=== PATIENT | female | born 1950 | race Caucasian/White ===

== ENCOUNTER → 2017-12-08 | Outpatient (CLI) | payer OTHER ==
[~2017-12-08] MED LIST: ALBIPROI; DULO30
[2017-12-09 08:38] LABS: Candida species (DNA Probe) Negative (NEGATIVE); G. vaginalis (DNA Probe) Negative (NEGATIVE); T. vaginalis (DNA Probe) Negative (NEGATIVE)
== END ==
LOC: LAB SHORT 18:24 → LAB EV 18:24
PROVIDERS: Nurse Practitioner Family
DX: L29.3 Anogenital pruritus, unspecified (principal)
CPT/HCPCS: 87480; 87510; 87660

== ENCOUNTER 2018-10-30 11:30 | Emergency (ER) | payer OTHER ==
[~2018-10-30] VITALS: Ht 162.6 cm; Wt 61.2 kg
[2018-10-30] MEDS ORDERED: SERT25 (11:58)
[2018-10-30] MEDS ORDERED: Abilify2 MG (11:58)
[2018-10-30] MEDS ORDERED: Norco 5-325 Ta1 EACH PO (15:13)
[2018-10-30] MEDS ORDERED: ONDA4ODT MM (15:13)
== END 2018-10-30 15:29 | disposition home or self-care (01) ==
LOC: ER 11:30
DX: S42.211A Unspecified displaced fracture of surgical neck of right humerus, initial encounter for closed fracture (principal); S42.301A Unspecified fracture of shaft of humerus, right arm, initial encounter for closed fracture; W18.30XA Fall on same level, unspecified, initial encounter
CPT/HCPCS: 29105; 73030; 73060; 73080; 73110; 73200; 76377; 96372; 99284-25; J1200; J2765

== ENCOUNTER 2019-12-25 22:32 | Inpatient (IN) | payer OTHER ==
[~2019-12-25] VITALS: Ht 162.6 cm; Wt 62.0 kg
[~2019-12-25 22:32] MED LIST changes: +Abilify2 MG; +Norco 5-325 Ta1 EACH PO; +ONDA4ODT MM; +SERT25 PO
[2019-12-26] MEDS ORDERED: Tizanidine HCl2 MG PO (00:15)
[2019-12-26 00:37] LABS: BASOPHILS ABSOLUTE AUTO 0.05 K/mm3 (0.00-0.23); BASOPHILS PERCENT AUTO 1 % (0-2); EOSINOPHILS ABSOLUTE AUTO 0.05 K/mm3 (0.00-0.68); EOSINOPHILS PERCENT AUTO 1 % (0-6); Hematocrit 36.6 % (33.0-51.0); Hemoglobin 12.3 g/dL (11.5-16.0); IMMATURE GRAN ABSOLUTE AUTO 0.04 K/mm3 (0.00-0.10); IMMATURE GRAN PERCENT AUTO 1 % (0-1); LYMPHOCYTES PERCENT AUTO 22 % (21-46); MONOCYTES ABSOLUTE AUTO 0.35 K/mm3 (0.16-1.47); MONOCYTES PERCENT AUTO 5 % (4-13); Mean Corpuscular HGB 31.7 pg (26.0-34.0); Mean Corpuscular HGB Conc 33.6 g/dL (31.5-36.5); Mean Corpuscular Volume 94 fL (80-100); Mean Platelet Volume 9.1 fL (9.1-12.4); NEUTROPHILS ABSOLUTE AUTO 5.42 K/mm3 (1.96-9.15); NEUTROPHILS PERCENT AUTO 71 % (41-73); Platelet Count 242 K/mm3 (150-400); RDW Coefficient Variation 11.9 % (11.7-14.2); RDW Standard Deviation 40.9 fL (35.1-46.3); Red Blood Cell Count 3.88 M/mm3 (3.80-5.20); White Blood Cell Count 7.61 K/mm3 (4.00-11.30)
[2019-12-26 00:55] LABS: Alanine Aminotransfer (ALT/SGP 22 U/L (12-78); Albumin, Blood 3.9 g/dL (3.4-5.0); Albumin/Globulin Ratio 1.3 (0.8-1.8); Alk Phos 82 U/L (50-136); Anion Gap 6 mmol/L (6-16); Aspartate Aminotrans (AST/SGOT 16 U/L (12-37); Bilirubin, Total 0.3 mg/dL (0.1-1.0); Blood Urea Nitrogen 23 mg/dL (8-24); Bun/Creatinine Ratio 25.8 (12.0-20.0); CO2, Blood 27 mmol/L (21-32); Calcium, Blood 9.1 mg/dL (8.5-10.1); Chloride, Blood 108 mmol/L (98-108); Creatinine, Blood 0.89 mg/dL (0.40-1.00); Globulin, Blood 2.9 g/dL (2.2-4.0); Glomerular Filtration Rate >60 (60-); Glucose, Blood 102 mg/dL (70-99); Potassium, Blood 3.5 mmol/L (3.5-5.5); Sodium, Blood 141 mmol/L (136-145); Total Protein, Blood 6.8 g/dL (6.4-8.2)
[2019-12-26 05:38] LABS: Hematocrit 36.7 % (33.0-51.0); Hemoglobin 12.4 g/dL (11.5-16.0); Mean Corpuscular HGB Conc 33.8 g/dL (31.5-36.5); Mean Corpuscular Volume 95 fL (80-100); Mean Platelet Volume 9.3 fL (9.1-12.4); Platelet Count 232 K/mm3 (150-400); RDW Coefficient Variation 11.9 % (11.7-14.2); Red Blood Cell Count 3.88 M/mm3 (3.80-5.20); White Blood Cell Count 12.07 K/mm3 (4.00-11.30)
[2019-12-26 06:00] LABS: Alanine Aminotransfer (ALT/SGP 21 U/L (12-78); Albumin, Blood 3.8 g/dL (3.4-5.0); Albumin/Globulin Ratio 1.3 (0.8-1.8); Alk Phos 78 U/L (50-136); Anion Gap 5 mmol/L (6-16); Aspartate Aminotrans (AST/SGOT 21 U/L (12-37); Bilirubin, Total 0.4 mg/dL (0.1-1.0); Blood Urea Nitrogen 19 mg/dL (8-24); CO2, Blood 26 mmol/L (21-32); Calcium, Blood 8.8 mg/dL (8.5-10.1); Chloride, Blood 106 mmol/L (98-108); Creatinine, Blood 0.68 mg/dL (0.40-1.00); Glomerular Filtration Rate >60 (60-); Glucose, Blood 116 mg/dL (70-99); Potassium, Blood 3.6 mmol/L (3.5-5.5); Sodium, Blood 137 mmol/L (136-145); Total Protein, Blood 6.8 g/dL (6.4-8.2)
--- NOTE | 2019-12-26 06:39 | NUR ---
PT ADMIT FROM ER. ARRIVED TO UNIT AT 0220 VIA STRETCHER. A/O X4. INTRODUCED TO STAFF AND ROOM. CURRENTLY ON 2 L O2 SATTING IN HIGH 90'S. SHE DOES NOT WEAR OYGGEN AT BASELINE BUT 02 DECREASED TO THE HIGH 80S WHEN FENTANYL WAS GIVEN. PT TAUGHT TO KEEP LEGS ABDUCTED WITH PILLOW WEDGED IN BETWEEN. CURRENTLY BED REST AND USES BED RG. NPO SINCE SHE ARRIVED. ICE PACK GIVEN FOR L HIP PAIN. CURRENTLY ASLEEP NOW. VSS. CALL LIGHT WITHIN REACH.
--- NOTE | 2019-12-26 07:42 | NUR ---
Report received from [facility] nurse, painful fx, medicated per prescription, difficulty taking medication, very anxious, r side arm weak pulse strong, l side arm and pulse normal, feet/legs normal pulse and movement, abdm soft nontender bt+4q, perrl, ls clear, hr strong, bed in low position, call light in reach, alert at base line, 2L via nc, IV nc at 75 infusing with no s/sx of infection or infiltration, needs to talk
--- NOTE | 2019-12-26 15:12 | NUR ---
I HAVE BEEN PUTTING ICE PACK ON LEFT THIGH FOR 20 MINUTES ATLEAST ONCE PER HOUR.
--- NOTE | 2019-12-26 19:20 | NUR ---
a+o, pain controlled with nonpharmalogical and medication, waiting for procedure, bed in low position, needs to be npo after midnight, call light in reach, able to make needs known, saline locked, 3L via nc, no acute changes noted during the day, bsr shared with staff and pt
--- NOTE | 2019-12-27 04:52 | NUR ---
CHANNEL MARKETING SPECIALIST SUMMARY PT A/O X4. CURRENTLY ON BEDREST. NPO SINCE MIDNIGHT FOR POSSIBLE PROCEDURE TODAY. WILL PASS ON TO AM NURSE ABOUT ORTHO CONSULTATION THIS MORNING THEIR OFFICE IS CLOSED DURING THE WEEKEND. MEDICATED PT FOR PAIN PER EMAR SEVERAL TIMES TODAY. PT DID HAVE SOME EMESIS. ZOFRAN IV GIVEN. PT SLEPT OFF AND ON TONIGHT. BEDPAN OFFERED SEVERAL TIMES. VSS. NO ACUTE CHANGES. WILL CONTINUE TO MONITOR.
[2019-12-27 06:10] LABS: BASOPHILS ABSOLUTE AUTO 0.08 K/mm3 (0.00-0.23); BASOPHILS PERCENT AUTO 1 % (0-2); EOSINOPHILS ABSOLUTE AUTO 0.21 K/mm3 (0.00-0.68); EOSINOPHILS PERCENT AUTO 2 % (0-6); Hematocrit 38.3 % (33.0-51.0); Hemoglobin 12.6 g/dL (11.5-16.0); IMMATURE GRAN ABSOLUTE AUTO 0.03 K/mm3 (0.00-0.10); IMMATURE GRAN PERCENT AUTO 0 % (0-1); LYMPHOCYTES ABSOLUTE AUTO 0.86 K/mm3 (0.84-5.20); LYMPHOCYTES PERCENT AUTO 9 % (21-46); MONOCYTES ABSOLUTE AUTO 0.53 K/mm3 (0.16-1.47); MONOCYTES PERCENT AUTO 5 % (4-13); Mean Corpuscular HGB 31.5 pg (26.0-34.0); Mean Corpuscular HGB Conc 32.9 g/dL (31.5-36.5); Mean Corpuscular Volume 96 fL (80-100); Mean Platelet Volume 9.3 fL (9.1-12.4); NEUTROPHILS ABSOLUTE AUTO 8.39 K/mm3 (1.96-9.15); NEUTROPHILS PERCENT AUTO 83 % (41-73); Platelet Count 216 K/mm3 (150-400); RDW Coefficient Variation 11.9 % (11.7-14.2); RDW Standard Deviation 41.6 fL (35.1-46.3)
[2019-12-27 06:41] LABS: Albumin, Blood 3.6 g/dL (3.4-5.0); Anion Gap 5 mmol/L (6-16); Blood Urea Nitrogen 12 mg/dL (8-24); Bun/Creatinine Ratio 16.9 (12.0-20.0); CO2, Blood 28 mmol/L (21-32); Chloride, Blood 106 mmol/L (98-108); Creatinine, Blood 0.71 mg/dL (0.40-1.00); Glomerular Filtration Rate >60 (60-); Glucose, Blood 109 mg/dL (70-99); Phosphorus, Blood 3.8 mg/dL (2.5-4.9); Potassium, Blood 3.8 mmol/L (3.5-5.5); Sodium, Blood 139 mmol/L (136-145); Troponin I <0.015 ng/mL (0.000-0.040)
--- NOTE | 2019-12-27 16:35 | NUR ---
Per admit trigger, I met with Ivon to offer information/education about ACP. She was very interested in completing an advanced directive. Gently explained this document. She will complete and let me know is she needs assistance. I will remain available.
--- NOTE | 2019-12-27 16:43 | NUR ---
STUDENT REQUESTED PERMISSION TO CARE FOR PATIENT ON 12/28/2019. PATIENT AGREES.
--- NOTE | 2019-12-27 18:08 | NUR ---
Shift Summary A/Ox4, pleasant and cooperative with care. Patient has been NPO for possible surgical procedure; Dr. Beltran has been consulted by this RN candle pourer today. Medicated for 7-8 pain with good results x 2 per EMAR. Denies N/V. Repositioned in bed as patient allows. Discussed NPO status and patient c/o dehydration with Ida. Order received for LR @ 75 mLs/hr x 1 bag.
--- NOTE | 2019-12-28 04:59 | NUR ---
COMPUTING MACHINE OPERATOR SUMMARY NO ACUTE CHANGES THIS SHIFT. PT AAOX4 AND PLEASANT. ON BEDREST. ASSISTED WITH BEDPAN NEEDED. DR STARKS IN TO SEE PT. ORDERED SOME IMAGING FOR THIS MORNING AND WILL REASSESS THEM LATER TODAY. PT NPO SINCE MIDNIGHT FOR POSSIBLE SURGERY LATER TODAY. VSS, WILL CONTINUE TO MONITOR.
[2019-12-28 06:24] LABS: Hematocrit 38.2 % (33.0-51.0); Hemoglobin 12.8 g/dL (11.5-16.0); Mean Corpuscular HGB 31.8 pg (26.0-34.0); Mean Corpuscular HGB Conc 33.5 g/dL (31.5-36.5); Mean Corpuscular Volume 95 fL (80-100); Mean Platelet Volume 9.5 fL (9.1-12.4); Platelet Count 211 K/mm3 (150-400); RDW Coefficient Variation 11.8 % (11.7-14.2); RDW Standard Deviation 40.8 fL (35.1-46.3); Red Blood Cell Count 4.02 M/mm3 (3.80-5.20); White Blood Cell Count 9.86 K/mm3 (4.00-11.30)
[2019-12-28 06:41] LABS: International Normalized Ratio 1.02; Prothrombin Time Results 10.9 Sec (9.7-11.5)
[2019-12-28 07:08] LABS: Anion Gap 7 mmol/L (6-16); Blood Urea Nitrogen 9 mg/dL (8-24); Bun/Creatinine Ratio 13.2 (12.0-20.0); CO2, Blood 27 mmol/L (21-32); Calcium, Blood 8.8 mg/dL (8.5-10.1); Chloride, Blood 102 mmol/L (98-108); Creatinine, Blood 0.68 mg/dL (0.40-1.00); Glomerular Filtration Rate >60 (60-); Glucose, Blood 81 mg/dL (70-99); Potassium, Blood 3.4 mmol/L (3.5-5.5); Sodium, Blood 136 mmol/L (136-145)
--- NOTE | 2019-12-28 08:39 | NUR ---
PATIENT DID NOT EAT BREAKFAST THIS SHIFT DUE TO BEING NPO AT THIS TIME.
--- NOTE | 2019-12-28 15:45 | NUR ---
PT TO ROOM 216. REPORT BEEN GIVEN TO THIS RN EARLIER TODAY. THIS RN TAKING OVER CARE AT THIS TIME. PT REPORTS PAIN 04/28. DENIES N/V. REPORTS RIGHT RIBS HURT WHEN TAKING DEEP BREATH RELATED TO HX OF R ARM INJURY WHICH PT HAS BRACE IN PLACE. PPX4 WIGGLES TOES. MOVES ARMS. PT A/O. GIVEN CALL LIGHT/PHONE. PT ASSISTED WITH CALLING FRIEND TO INFORM HER OF PT MOVING ROOMS.
--- NOTE | 2019-12-28 15:51 | NUR ---
Transfer of care Pt transferred to Surgical floor RM 216. A/Ox3, pleasant and cooperative. Report given to receiving JESSICA Stallworth. UA collected and sent. Medicated for pain x 2 per EMAR with good results. No complaints of nausea. Patient resumed Regular diet as of lunch today and will be NPO after midnight per Dr. Beltran for hip surgery scheduled for tomorrow 12/28/19 @ 1230. Patient has not had bowel since 12/23, Dr. Jacobs notified and order received. No other concerns.
[2019-12-28 16:08] LABS: Source, Urine Catheter
[2019-12-28 16:20] LABS: Bilirubin, Urine Neg (Neg); Blood, Urine 2+ (Neg); Glucose Qualitative, Urine Neg (Neg); Ketones, Urine 4+ (Neg); Leukocyte Esterase, Urine 2+ (Neg); Nitrite, Urine Neg (Neg); Protein, Urine 1+ (Neg); Specific Gravity, Urine 1.025 (1.003-1.022); Urobilinogen, Urine NORM (Normal)
[2019-12-28 16:33] LABS: Appearance, Urine Clear (Clear); Color, Urine Yellow (P-Yellow)
[2019-12-28 16:34] LABS: Bacteria Few /hpf; Squamous Epithelial Cells Few /hpf (Few); White Blood Cells, Urine 25-50 /hpf (0-5)
--- NOTE | 2019-12-29 03:49 | NUR ---
SHIFT SUMMARY PT A/OX4 WITH VSS. NO ACUTE CHANGES THIS SHIFT. HAS BEEN NPO SINCE MIDNIGHT, AWAITING SURGERY FOR LEFT FEMUR FX THIS MORNING. PAIN MANAGED PER EMAR, REPOSITIONING, AND ICE THERAPY. WARM TO TOUCH WITH BRISK CAP REFILL TO LLE. PT APPEARS TO HAVE SLEPT T/O MOST OF NIGHT. IS CURRENTLY RESTING IN BED WITH CALL LIGHT IN REACH. WILL CONT TO MONITOR AND GIVE REPORT TO ONCOMING RN.
[2019-12-29 05:23] LABS: Hematocrit 36.6 % (33.0-51.0); Hemoglobin 12.6 g/dL (11.5-16.0); Mean Corpuscular HGB 31.9 pg (26.0-34.0); Mean Corpuscular HGB Conc 34.4 g/dL (31.5-36.5); Mean Corpuscular Volume 93 fL (80-100); Mean Platelet Volume 9.1 fL (9.1-12.4); Platelet Count 201 K/mm3 (150-400); RDW Coefficient Variation 11.6 % (11.7-14.2); RDW Standard Deviation 39.4 fL (35.1-46.3); Red Blood Cell Count 3.95 M/mm3 (3.80-5.20); White Blood Cell Count 8.95 K/mm3 (4.00-11.30)
[2019-12-29 05:36] LABS: Anion Gap 7 mmol/L (6-16); Blood Urea Nitrogen 13 mg/dL (8-24); Bun/Creatinine Ratio 19.8 (12.0-20.0); CO2, Blood 28 mmol/L (21-32); Calcium, Blood 8.8 mg/dL (8.5-10.1); Chloride, Blood 103 mmol/L (98-108); Creatinine, Blood 0.66 mg/dL (0.40-1.00); Glomerular Filtration Rate >60 (60-); Glucose, Blood 94 mg/dL (70-99); Potassium, Blood 3.8 mmol/L (3.5-5.5); Sodium, Blood 138 mmol/L (136-145)
--- NOTE | 2019-12-29 11:43 | NUR ---
PT TO SURGERY VIA HOSPITAL BED
--- NOTE | 2019-12-29 12:32 | NUR ---
PT HAD A HIGH TEMP AFTER RECHECKING WITH TEMPORAL AND ORAL THERMOMNETERS. PT HAD A PRELEMINARY MICRO REPORT THAT SHOWS GRAM MEGATIVE RODS. SPOKE TO BOTH DR OSUNA AND DR BULL REGARDING FINDINGS. PT DID NOT GET AN ANTIBIOTIC IN THE ER PER PHARMACY. WILL REPORT TO DAYAN GRACE RN REGARDING CANCELLATION OF SURGERY.
--- NOTE | 2019-12-29 12:47 | NUR ---
RETURN TO ROOM SURGERY CANCELLED PER ORTHO. PT BACK TO ROOM. IVF AND IV ABX STARTED. LUNCH ORDERED AND WILL MEDICATE POST MEAL.
--- NOTE | 2019-12-29 17:17 | NUR ---
SHIFT SUMMARY PT WAS SUPPOSED TO HAVE SURGERY TODAY BUT WAS POST PONED DUE TO SPIKE IN FEVER. PT'S PAIN TOLERABLE. TAKING IN PO WITHOUT DIFF. VOIDING. HOPEFUL FOR SURGICAL REPAIR.
--- NOTE | 2019-12-30 07:26 | NUR ---
SUMMARY PT HOPING FOR SURGERY TODAY. CONT VOIDING PER BEDPAN AND PER ATTENDS. TOLERATING PO PAIN MED. REPORTS MED EFFECTIVE. PT REPORTS SHE BELIEVES SHE HAS HX SLEEP APNEA, BUT NOT DIAGNOSED. ADVISED SHE SHOULD FOLLOW UP WITH HER PCP TO CONFIRM. PLACED ON CONT PULSE OX.
--- NOTE | 2019-12-30 11:10 | NUR ---
SHIFT ASSESSMENT ASSESSMENT BY ROSSY ARCOS STUDENT NURSE WAS REVIEWED; THIS RN AGREES WITH THAT ASSESSMENT.
--- NOTE | 2019-12-30 12:40 | NUR ---
PT BROUGHT TO [facility] VIA BED FROM SURGICAL ROOM. History, Chart, Medications and Allergies reviewed before start of procedure.Patient confirms NPO status and agrees with scheduled surgery. Surgical site prepped with 2% Chlorhexidine cloth wipe.
--- NOTE | 2019-12-30 12:41 | NUR ---
VASCULAR ACCESS PT INTO SDS WITH 18G IV IN LEFT FOREARM. PATENT. INFUSING.
--- NOTE | 2019-12-30 14:55 | NUR ---
12/30/19 1455 Karen Randolph PT HAS A RED ABRASION ON BACK APPROXIMATELY 2" KIPNUK
--- NOTE | 2019-12-30 17:35 | NUR ---
POST-OP PATIENT SUMMARY: PATIENT CAME BACK FROM OR AT AROUND 1723 SLEEPING AND IS EASILY AROUSABLE. SHE IS CURRENTLY ON 2L OF OXYGEN LIKE HOW SHE WAS PRIOR TO LEAVING. HER VITAL SIGNS WERE WITHIN NORMAL LIMITS. SHE HAS GOOD CAP REFILL, LUNGS AND HEART SOUNDS ARE ALSO WITHIN NORMAL LIMITS, AND SKIN IS WARM FROM WARMED BLANKETS. DRESSING IS CLEANED/DRY/AND INTACT. WHEN WOKEN TO ASK ABOUT PAIN SHE STATES "NO PAIN". SHE IS DROWSY WHEN BEING WOKEN UP. WILL CONTINUE TO MONITOR PATIENT THROUGHOUT THE SHIFT.
--- NOTE | 2019-12-30 19:18 | NUR ---
SHIFT SUMMARY: PATIENT HAD WNL VITAL SIGNS THIS MORNING UNTIL THE OR NURSES CAME TO TAKE HER TO SURGERY. PATIENT CAME BACK FROM SURGERY AROUND 1725 AND HER BP, PULSE, AND TEMPERATURE HAVE BEEN WITHIN NORMAL LIMITS. WHEN SHE IS SLEEPING SHE HAS THESE APNIC EPISODES WHICH CAUSE HER OXYGEN TO GO IN HIGH 80S, BUT WHEN SHE WAKES UP TO THE BEEPING FROM THE CONTINUOUS PULSE OX SHE GOES BACK UP TO HIGH 90S. HER NC IS IN HER MOUTH SINCE SHE IS SLEEPING WITH HER MOUTH OPEN. PATIENT DID HAVE SOME ANXIETY MOMENTS PRIOR TO SURGERY, BUT GIVING HER SOME PEPPERMINT AROMA PATCHES SEEMED TO HELP HER.
--- NOTE | 2019-12-30 19:59 | NUR ---
SHIFT SUMMARY PT HAS BEEN SLEEPING POST-OP. SHE AWAKENS WHEN SPOKEN TO. PAIN MANAGED. VSS. REPORT GIVEN TO BRENDA LOPEZ.
--- NOTE | 2019-12-31 06:21 | NUR ---
SUMMARY PT OOB TO C TONIGHT. REQUIRED 3 PERSONS AND GAIT BELT. PT FEARFUL DUE TO FREQ FALLS AT HOME. REQUIRING FREQUENT VERBAL CUES AND REDIRECT FOR SAFETY. DISCUSSED ORTHO PRECAUTIONS.
--- NOTE | 2019-12-31 08:59 | NUR ---
SHIFT ASSESSMENT SHIFT ASSESSMENT BY ROSSY GARCIA NURSE, WAS REVIEWED AND THIS RN AGREES WITH DOCUMENTATION. PT IS ALERT AND ORIENTED SITTING UP IN HER BED. LUNG SOUNDS ARE CLEAR. SHE IS TOLERATING PO. PT IS ANXIOUS ABOUT CARE AND HEALING. SHE TALKS WITH STAFF WHEN WORRIED AND ASKS APPROPRIATE QUESTIONS. L HIP IS MILDLY SWOLLEN, AQUACELL DRESSING IS C/D/I. WILL CONTINUE TO MONITOR.
--- NOTE | 2019-12-31 15:44 | NUR ---
LATE ENTRY AT 1544 REGARDING PT CANCELLATION FOR SURGERY ON 12/31/19. PT TEMPERATURE WAS 101.8F.
--- NOTE | 2019-12-31 17:03 | NUR ---
SHIFT SUMMARY: PATIENT HAS HAD WITHIN THE NORMAL LIMITS OF BP, HR, AND TEMP. HOWEVER, HER OXYGEN SATURATIONS HAVE INTERMITTENTLY DECLINED ESPECIALLY WHEN ASLEEP OR WHEN GETTING OUT OF BED. SHE HAS BEEN ON 1L OF OXYGEN THROUGHOUT THE SHIFT AND HAS BEEN ON CONTINUOUS PULSE OX TO HELP MONITOR. SHE WAS ABLE TO GET PT TODAY WHICH SHE WAS ABLE TO STAND WITH A WALKER, BUT NEEDS HELP TO INITIALLY GET UP WELL REMINDED TO LEAN A LITTLE BIT FORWARD TO BALANCE HER. SHE IS INCONTINENT BUT HAS BEEN WANTING TO TRY AND GET UP TO USE THE BEDSIDE COMMODE MUCH POSSIBLE. SO FAR THIS SHIFT SHE HAS BEEN UP TO THE BEDSIDE COMMODE 3 TIMES. WHEN SHE DOES HAVE THE URGENCY TO USE THE COMMODE SHE BECOMES ANXIOUS SINCE SHE HAS THE RIGHT HUMERUS FRACTURE WELL HER LEFT HIP SURGICAL SITE. SHE SOMETIMES DOESN'T REMEMBER TO USE THE CALL LIGHT WHEN SHE WAS ON THE COMMODE, SO FREQUENTLY CHECKING THE PATIENT TO SEE IF SHE WAS DONE WAS NECESSARY DURING THE SHIFT. HER PAIN HAS BEEN WELL MANAGED DURING THE SHIFT. SHE IS SLOW TO RESPOND WHEN ASKING QUESTIONS, SO TAKING THE TIME TO LISTEN AND UNDERSTAND HER WAS SOTOMAYOR DURING THE SHIFT SO FAR. WILL CONTINUE TO MONITOR PATIENT.
--- NOTE | 2019-12-31 17:08 | NUR ---
SHIFT SUMMARY PAIN HAS BEEN MANAGED WITH NORCO THIS SHIFT. PT IS A 2 PERSON MODERATE ASSIST WITH TRANSFERS. SHE IS ANXIOUS ABOUT TRANSFERS AND RESPONDS WELL TO REASSURANCE AND INSTRUCTION. PT HAS BEEN TEARFUL AT TIMES BECAUSE OF ANXIETY; HOWEVER SHE HAS BEEN IN GOOD SPIRITS MOST OF THE DAY. PT IS TOLERATING FOOD AND FLUIDS WELL. PT WAS HAVING URINARY FREQUENCY AND URGENCY TODAY, PYRIDIUM STARTED FOR COMFORT. VSS. WILL MONITOR UNTIL REPORT TO ONCOMING RN.
--- NOTE | 2020-01-01 05:41 | NUR ---
SHIFT SUMMARY PINO IS POD2 FOR A LEFT TOTAL HIP ARTHROPLASTY AFTER SUFFERING A FEMORAL NECK FRACTURE. SHE IS A&O, SLOW TO RESPOND AT TIMES D/T HX OF SUBARACHNOID HEMORRHAGE IN 2005. SHE IS TOLERATING PO INTAKE WELL. SHE IS CONTINENT, BUT HAS URGENCY AND DOES NOT ALWAYS CALL TO USE THE BEDPAN, CHOOSING TO UTILIZE THE ATTENDS INSTEAD. SHE HAS COMPLAINED OF MUSCLE SPASM FOR WHICH SHE STATED THE LORAZEPAM WAS HELPFUL. SHE HAS RESTED INTERMITTENTLY THIS SHIFT. DRESSING TO LEFT HIP C/D&I. SHE IS LYING IN BED WITH THE CALL LIGHT IN REACH. WILL REPORT TO DAY SHIFT RN.
--- NOTE | 2020-01-01 16:48 | NUR ---
SHIFT SUMMARY PT A&OX4, VSS, 2LNC, BIOX >93%, TCDB & I.S. EDU & ENC. POD2 L CORRINE, AQUACEL CDI; WBAT; STAND PIVOT TO BSC/CHAIR/BED W/2 PP MOD ASSIST W/FWW & GB; OOB IN CHAIR T/O SHIFT. PAIN MANAGED WITH 5 MG NORCO; MUSCLE SPASMS WITH ZANAFLEX. MYA PO, DENIES N&V. VOIDING WELL: CONTINENT/INCONTINENT, ATTENDS ON FOR LEAKAGE. BM TODAY. WILL REPORT TO ONCOMING NOC RN.
[2020-01-02 06:13] LABS: BASOPHILS PERCENT AUTO 2 % (0-2); EOSINOPHILS ABSOLUTE AUTO 0.23 K/mm3 (0.00-0.68); EOSINOPHILS PERCENT AUTO 4 % (0-6); Hematocrit 29.4 % (33.0-51.0); Hemoglobin 9.6 g/dL (11.5-16.0); IMMATURE GRAN ABSOLUTE AUTO 0.02 K/mm3 (0.00-0.10); IMMATURE GRAN PERCENT AUTO 0 % (0-1); LYMPHOCYTES ABSOLUTE AUTO 1.61 K/mm3 (0.84-5.20); LYMPHOCYTES PERCENT AUTO 24 % (21-46); MONOCYTES ABSOLUTE AUTO 0.49 K/mm3 (0.16-1.47); MONOCYTES PERCENT AUTO 7 % (4-13); Mean Corpuscular HGB 31.4 pg (26.0-34.0); Mean Corpuscular HGB Conc 32.7 g/dL (31.5-36.5); Mean Platelet Volume 9.1 fL (9.1-12.4); NEUTROPHILS ABSOLUTE AUTO 4.21 K/mm3 (1.96-9.15); NEUTROPHILS PERCENT AUTO 63 % (41-73); Platelet Count 252 K/mm3 (150-400); RDW Coefficient Variation 11.8 % (11.7-14.2); RDW Standard Deviation 41.6 fL (35.1-46.3); Red Blood Cell Count 3.06 M/mm3 (3.80-5.20); White Blood Cell Count 6.66 K/mm3 (4.00-11.30)
[2020-01-02 06:23] LABS: Mean Corpuscular Volume 96 fL (80-100)
[2020-01-02 06:35] LABS: Anion Gap 5 mmol/L (6-16); Blood Urea Nitrogen 12 mg/dL (8-24); Bun/Creatinine Ratio 16.2 (12.0-20.0); CO2, Blood 33 mmol/L (21-32); Calcium, Blood 9.2 mg/dL (8.5-10.1); Chloride, Blood 102 mmol/L (98-108); Creatinine, Blood 0.74 mg/dL (0.40-1.00); Glomerular Filtration Rate >60 (60-); Glucose, Blood 99 mg/dL (70-99); Potassium, Blood 3.7 mmol/L (3.5-5.5); Sodium, Blood 140 mmol/L (136-145)
--- NOTE | 2020-01-02 07:29 | NUR ---
SHIFT SUMMARY PT IS A/O X4. REPOSITIONS SELF WELL IN BED AND HAS BEEN ASSISTED WITH REPOSITIONING PRN. ATTENS HAVE BEEN IN PLACE AND CHANGED PRN. O2 IN USE THROUGHOUT THE NIGHT. PAIN MANAGED WITH PO PAIN MEDS PER ORDERS. ASSISTED WITH ADL'S PRN.
--- NOTE | 2020-01-02 15:28 | NUR ---
SHIFT SUMMARY: PT S/P LEFT HIP REPAIR. PAIN MANAGED WITH NORCO PER EMAR. MEDICATED ONCE THIS SHIFT. PT OUT OF BED TO BEDSIDE COMMODE WITH 1-2 MODERATE ASSIST +FWW/GB. MOBILITY APPEARS TO BE IMPROVING THROUGHOUT SHIFT. PT HAD 2 BM'S AND IS VOIDING WELL. DENIES ANY URINARY SYMPTOMS. PLAN FOR POSSIBLE DISCHARGE TO SNF TOMORROW.
--- NOTE | 2020-01-03 03:53 | NUR ---
SHIFT SUMMARY PT IS A/O X4. TOLERATING PO INTAKE. OCCASIONAL URGE INCONTINENCE; ATTENS IN PLACE. NEEDS 1-2 ASSIST TO TRANSFER. PT HAS BEEN USING O2 NC TO MAINTAIN SATURATION; CONT. BIOX IN PLACE THROUGH THE NIGHT. PT HAS BEEN CHANGED W/ROSE CARE PROVIDED MULT TIMES PRN. PT WAS ABLE TO GET REST DURING THE NIGHT. REPOSITIONS SELF WELL IN BED & ASSISTED WITH REPOSITIONING PRN. ASSISTED WITH ADL'S PRN.
--- NOTE | 2020-01-03 07:44 | NUR ---
PATIENT SATS WELL OVER 98% CONSISTENLY ON OXYGEN, DENIES WEARING OXYGEN AT HOME. OXYGEN REMOVED AND WILL MONITOR SATS
[2020-01-03] MEDS ORDERED: HYDR1TAB94 PO (12:00)
[2020-01-03] MEDS ORDERED: Vsl#3 Capsule1 EACH PO (12:01)
[2020-01-03] MEDS ORDERED: Prinivil10 MG PO (12:02)
[2020-01-03] MEDS ORDERED: GAVILAX17 GM PO (12:17)
[2020-01-03] MEDS ORDERED: POTA10T PO (12:18)
[2020-01-03] MEDS ORDERED: SENN187 PO (12:19)
[2020-01-03] MEDS ORDERED: Bactrim Ds Tab1 EACH PO (12:20)
[2020-01-03] MEDS ORDERED: ENOX40I SC (12:20)
--- NOTE | 2020-01-03 12:34 | NUR ---
pt sitting in recliner eating lunch, denies needs, Report given to to assume care.
--- NOTE | 2020-01-03 12:55 | NUR ---
Report called to Kate at [facility], [facility]
== END 2020-01-03 12:48 | DRG 470 ==
LOC: ER 22:32 → SURS 12-26 01:59 → MEDS 12-26 01:59 → SURS 12-28 16:11
PROVIDERS: Emergency Medicine; Family Medicine; Internal Medicine Gastroenterology; Orthopaedic Surgery; ADMIT Internal Medicine
PROC: 0SRB04A Replacement of Left Hip Joint with Ceramic on Polyethylene Synthetic Substitute, Uncemented, Open Approach (ICD-10-PCS; principal; 2019-12-30 12:30)
DX: S72.002A Fracture of unspecified part of neck of left femur, initial encounter for closed fracture (principal); N39.0 Urinary tract infection, site not specified; D62 Acute posthemorrhagic anemia; S42.301K Unspecified fracture of shaft of humerus, right arm, subsequent encounter for fracture with nonunion; I10 Essential (primary) hypertension; K59.00 Constipation, unspecified; W18.30XA Fall on same level, unspecified, initial encounter; B96.20 Unspecified Escherichia coli [E. coli] as the cause of diseases classified elsewhere; F32.9 Major depressive disorder, single episode, unspecified; F41.9 Anxiety disorder, unspecified; M79.7 Fibromyalgia
CPT/HCPCS: 36415; 71045; 72170; 72192; 73502; 73552; 80048; 80053; 80069; 81001; 83735; 83880; 84484; 85025; 85027; 85610; 87077; 87086; 87186; 88305; 88311; 93005; 93010; 94760; 94762; 96374; 97110; 97162; 97166; 97530; 99285-25; A9270-GY; C1776; J0171; J0690; J0696; J0735; J1100; J1885; J2060; J2250; J2370; J2405; J2704; J2710; J2795; J3010; J7030; J7120

== ENCOUNTER → 2024-09-13 | Outpatient (CLI) | payer OTHER ==
[~2024-09-13] MED LIST changes: +Bactrim Ds Tab1 EACH PO; +ENOX40I SC; +GAVILAX17 GM PO; +HYDR1TAB94 PO; +POTA10T PO; +Prinivil10 MG PO; +SENN187 PO; +Tizanidine HCl2 MG PO; +Vsl#3 Capsule1 EACH PO
== END | disposition home or self-care (01) ==
LOC: LAB SHORT 12:30 → LAB 12:30
DX: R32 Unspecified urinary incontinence (principal)
CPT/HCPCS: 87086